=== PATIENT | female | born 2000 | race Caucasian/White ===

== ENCOUNTER 2023-06-04 09:19 | Emergency (ER) | payer MEDICAID ==
[~2023-06-04] VITALS: Ht 152.4 cm; Wt 47.6 kg
--- NOTE | 2023-06-04 09:57 | NUR ---
called to triage, not in lobby x1
[2023-06-04 10:15] VITALS: BP 124/69; PULSE 95; O2SAT 98
[2023-06-04 10:46] VITALS: TEMP 97.9
[2023-06-04 10:50] VITALS: RESP 18
[2023-06-04 10:51] LABS: URINE HCG NEGATIVE (NEG)
--- NOTE | 2023-06-04 14:08 | NUR ---
AGREE WITH LVNS ASSESSMENT, REVIEWED.
== END 2023-06-04 14:11 | disposition home or self-care (01) ==
LOC: ER 09:19
DX: Z32.02 Encounter for pregnancy test, result negative (principal); F12.90 Cannabis use, unspecified, uncomplicated; Z91.013 Allergy to seafood; Z88.2 Allergy status to sulfonamides
CPT/HCPCS: 81025; 99283

== ENCOUNTER 2023-06-17 11:20 | Emergency (ER) | payer MEDICAID ==
[~2023-06-17] VITALS: Ht 154.9 cm; Wt 48.3 kg
[2023-06-17 11:30] VITALS: TEMP 99.2
[2023-06-17 12:07] LABS: BASOPHILS % (AUTO) 0.3 % (0-1); EOSINOPHILS % (AUTO) 0.5 % (0-6); HEMATOCRIT 38.9 % (35.0-45.0); HEMOGLOBIN 12.9 g/dl (12.0-16.0); LYMPHOCYTES # (AUTO) 1.1 X10'3 (1.1-4.8); LYMPHOCYTES % (AUTO) 22.1 % (21-51); MEAN CORPUSCULAR HEMOGLOBIN 29.8 PG (27.0-31.0); MEAN CORPUSCULAR HGB CONC 33.1 g/dL (33.0-36.5); MEAN CORPUSCULAR VOLUME 90.1 FL (78-98); MEAN PLATELET VOLUME 8.9 FL (7.4-10.4); MONOCYTES # (AUTO) 0.4 X10'3 (0-0.9); MONOCYTES % (AUTO) 7.3 % (2-12); NEUTROPHILS # (AUTO) 3.5 X10'3 (1.8-7.7); NEUTROPHILS % (AUTO) 69.8 % (42-75); PLATELET COUNT 169 X10'3 (140-440); RED BLOOD COUNT 4.31 X10'6 (4.20-5.60); RED CELL DISTRIBUTION WIDTH 12.3 % (11.5-14.5)
[2023-06-17 12:14] LABS: ALANINE AMINOTRANSFERASE 18 U/L (12-78); ALBUMIN 3.6 G/DL (3.4-5.0); ALBUMIN/GLOBULIN RATIO 1.1 (1.1-1.5); ALKALINE PHOSPHATASE 65 IU/L (46-116); ANION GAP 8 (8-16); ASPARTATE AMINO TRANSFERASE 22 U/L (10-37); BILIRUBIN,TOTAL 0.5 MG/DL (0.1-1.0); BLOOD UREA NITROGEN 10 MG/DL (7-18); CALCIUM 8.4 MG/DL (8.5-10.1); CHLORIDE 103 MMOL/L (99-107); CREATININE 0.77 MG/DL (0.40-0.90); ETHANOL < 10 MG/DL (<10); GLUCOSE 90 MG/DL (70-104); POTASSIUM 3.3 MMOL/L (3.5-5.1); SODIUM 138 MMOL/L (135-145); TOTAL PROTEIN 6.9 G/DL (6.4-8.2); eCRCL 86 ML/MIN; eGFR > 90 ML/MIN
[2023-06-17 12:46] LABS: BILIRUBIN,URINE NEGATIVE (Neg); CLARITY,URINE SLIGHTLY CLOUDY (Clear); COLOR,URINE YELLOW (Yellow); GLUCOSE, URINE NEGATIVE (Neg); KETONES,URINE TRACE mg/dl (Neg); LEUKOCYTE ESTERASE ,URINE NEGATIVE (Neg); NITRITES, URINE NEGATIVE (Neg); OCCULT BLOOD,URINE TRACE-INTACT (Neg); PH,URINE 5.5 (4.8-8.0); PROTEIN,URINE NEGATIVE (Neg); UROBILINOGEN,URINE 0.2 E.U/dL (0.2-1.0)
[2023-06-17 12:47] LABS: URINE AMPHETAMINE SCREEN NEGATIVE (Neg); URINE BARBITUATE SCREEN NEGATIVE (Neg); URINE BENZODIAZEPINES SCREEN NEGATIVE (Neg); URINE CANNABINOID SCREEN NEGATIVE (Neg); URINE COCAINE SCREEN NEGATIVE (Neg); URINE METHADONE SCREEN NEGATIVE (Neg); URINE OPIATE SCREEN NEGATIVE (Neg); URINE PHENCYCLIDINE SCREEN NEGATIVE (Neg)
[2023-06-17] MEDS ORDERED: PANT20TA18 PO (12:47)
[2023-06-17] MEDS ORDERED: ALBU6.7H14 INH (12:47)
[2023-06-17] MEDS ORDERED: pantoprazole 40mg Tablet.DR PO SCH (12:50)
[2023-06-17] MEDS ORDERED: pantoprazole 40mg Tablet.DR PO ONE ×3 (12:50→12:55)
[2023-06-17 12:56] LABS: MUCUS STRANDS MANY /LPF (Neg); SQUAMOUS EPITHELIAL CELL,UR MANY /LPF (FEW); UA COLLECTION TYPE CLN CATCH MIDSTREAM
[2023-06-17 12:58] LABS: BACTERIA,URINE 1+ /HPF (Neg); RBC,URINE 0-2 /HPF (0-2); WBC,URINE 0-4 /HPF (0-4)
[2023-06-17 13:19] VITALS: BP 109/72; PULSE 104; RESP 22; O2SAT 97
== END 2023-06-17 13:33 | disposition home or self-care (01) ==
LOC: ER 11:20
DX: R42 Dizziness and giddiness (principal); R53.83 Other fatigue; R10.9 Unspecified abdominal pain; F12.90 Cannabis use, unspecified, uncomplicated; Z91.013 Allergy to seafood; Z88.2 Allergy status to sulfonamides
CPT/HCPCS: 36415; 71045; 80053; 80305; 80320; 81001; 82948; 85025; 93005; 99285

== ENCOUNTER 2023-07-01 12:53 | Emergency (ER) | payer OTHER, MEDICAID ==
[~2023-07-01] VITALS: Ht 154.9 cm; Wt 47.3 kg
[~2023-07-01 12:53] MED LIST: ALBU6.7H14 INH; PANT20TA18 PO
[2023-07-01] MEDS ORDERED: CYCL-1 PO (14:46)
[2023-07-01 14:57] VITALS: BP 101/68; PULSE 77; RESP 16; TEMP 98.4; O2SAT 97
== END 2023-07-01 14:59 | disposition home or self-care (01) ==
LOC: ER 12:54
DX: M54.2 Cervicalgia (principal); M54.9 Dorsalgia, unspecified; V87.7XXA Person injured in collision between other specified motor vehicles (traffic), initial encounter; Y93.89 Activity, other specified; Y92.89 Other specified places as the place of occurrence of the external cause; Y99.8 Other external cause status
CPT/HCPCS: 72040; 72100; 99284

== ENCOUNTER 2024-01-19 14:03 | Emergency (ER) | payer OTHER, MEDICAID ==
[~2024-01-19] VITALS: Ht 157.5 cm; Wt 60.0 kg
[~2024-01-19 14:03] MED LIST changes: +CYCL-1 PO
[2024-01-19] MEDS: CefTRIAXone 500MG IM Kit w/LIDOcaine (for pt below or = to 150kg) IM ONE (14:45)
[2024-01-19] MEDS: LEVONORGESTREL 1.5MG tablet 1.5 MG TABLET PO ONE (17:09)
[2024-01-19] MEDS: TINIDAZOLE 500 MG TABLET PO ONE (17:10)
[2024-01-19] MEDS: azithromycin 250mg tablet PO ONE (17:10)
[2024-01-19] MEDS ORDERED: OLAN2.5T3 PO (17:48)
[2024-01-19] MEDS ORDERED: SERT-153 PO (17:48)
[2024-01-19] MEDS ORDERED: BUSP10TA11 PO (17:48)
[2024-01-19 18:00] VITALS: BP 104/70; PULSE 85; RESP 14; TEMP 98.3; O2SAT 98
== END 2024-01-19 18:03 | disposition home or self-care (01) ==
LOC: EEVIPCON 14:04 → ER 14:04
DX: T74.21XA Adult sexual abuse, confirmed, initial encounter (principal); F41.9 Anxiety disorder, unspecified; F32.A Depression, unspecified; F20.9 Schizophrenia, unspecified; F12.90 Cannabis use, unspecified, uncomplicated; Z72.89 Other problems related to lifestyle; Z79.899 Other long term (current) drug therapy; Z88.2 Allergy status to sulfonamides; Z88.8 Allergy status to other drugs, medicaments and biological substances; Z91.013 Allergy to seafood
CPT/HCPCS: 99284

== ENCOUNTER 2024-06-11 23:44 | Emergency (ER) | payer MEDICAID ==
[~2024-06-11] VITALS: Ht 154.9 cm; Wt 49.4 kg
[~2024-06-11 23:44] MED LIST changes: -ALBU6.7H14 INH; +BUSP10TA11 PO; -CYCL-1 PO; +OLAN5TAB5 PO; -PANT20TA18 PO; +SERT25TA PO
[2024-06-12 00:58] LABS: BILIRUBIN,URINE NEGATIVE (Neg); CLARITY,URINE SLIGHTLY CLOUDY (Clear); COLOR,URINE YELLOW (Yellow); GLUCOSE, URINE NEGATIVE (Neg); KETONES,URINE NEGATIVE (Neg); LEUKOCYTE ESTERASE ,URINE NEGATIVE (Neg); NITRITES, URINE NEGATIVE (Neg); OCCULT BLOOD,URINE NEGATIVE (Neg); PH,URINE 5.5 (4.8-8.0); PROTEIN,URINE NEGATIVE (Neg); URINE HCG POSITIVE (NEG); UROBILINOGEN,URINE 0.2 E.U/dL (0.2-1.0)
[2024-06-12 01:08] LABS: UA COLLECTION TYPE CLN CATCH MIDSTREAM
[2024-06-12] MEDS ORDERED: ONDA-243 PO (01:30)
[2024-06-12] MEDS ORDERED: PREN-125 PO (01:30)
[2024-06-12 01:37] LABS: BASOPHILS % (AUTO) 0.5 % (0-1); EOSINOPHILS # (AUTO) 0.1 X10'3 (0-0.9); EOSINOPHILS % (AUTO) 1.2 % (0-6); HEMATOCRIT 34.1 % (35.0-45.0); HEMOGLOBIN 11.7 g/dl (12.0-16.0); LYMPHOCYTES # (AUTO) 2.5 X10'3 (1.1-4.8); LYMPHOCYTES % (AUTO) 35.3 % (21-51); MEAN CORPUSCULAR HEMOGLOBIN 30.8 PG (27.0-31.0); MEAN CORPUSCULAR HGB CONC 34.4 g/dL (33.0-36.5); MEAN CORPUSCULAR VOLUME 89.5 FL (78-98); MEAN PLATELET VOLUME 8.2 FL (7.4-10.4); MONOCYTES # (AUTO) 0.7 X10'3 (0-0.9); MONOCYTES % (AUTO) 9.1 % (2-12); NEUTROPHILS # (AUTO) 3.8 X10'3 (1.8-7.7); NEUTROPHILS % (AUTO) 53.9 % (42-75); PLATELET COUNT 269 X10'3 (140-440); RED BLOOD COUNT 3.81 X10'6 (4.20-5.60); RED CELL DISTRIBUTION WIDTH 13.1 % (11.5-14.5); WHITE BLOOD COUNT 7.1 X10'3 (4.5-11.0)
[2024-06-12 01:48] LABS: AMORPHOUS URATES 1+; BACTERIA,URINE FEW /HPF (Neg); CAL OXALATE CRYSTALS FEW /HPF (NEGATIVE); MUCUS STRANDS FEW /LPF (Neg); RBC,URINE 0-2 /HPF (0-2); SQUAMOUS EPITHELIAL CELL,UR MANY /LPF (FEW); WBC,URINE 0-4 /HPF (0-4)
[2024-06-12 01:50] LABS: ALANINE AMINOTRANSFERASE 9 U/L (12-78); ALBUMIN 3.7 G/DL (3.4-5.0); ALBUMIN/GLOBULIN RATIO 1.1 (1.1-1.5); ALKALINE PHOSPHATASE 53 IU/L (46-116); ANION GAP 4 (8-16); ASPARTATE AMINO TRANSFERASE 9 U/L (10-37); BILIRUBIN,TOTAL 0.4 MG/DL (0.1-1.0); BLOOD UREA NITROGEN 10 MG/DL (7-18); BUN/CREATININE RATIO 12.8 (10.0-20.0); CALCIUM 8.8 MG/DL (8.5-10.1); CHLORIDE 102 MMOL/L (99-107); CREATININE 0.78 MG/DL (0.40-0.90); GLUCOSE 95 MG/DL (70-104); POTASSIUM 4.2 MMOL/L (3.5-5.1); SODIUM 137 MMOL/L (135-145); TOTAL CARBON DIOXIDE 31.2 MMOL/L (24-32); TOTAL PROTEIN 7.1 G/DL (6.4-8.2); eCRCL 85 ML/MIN; eGFR > 90 ML/MIN
[2024-06-12] MEDS: acetaminophen 325mg tablet PO ONE (02:33)
[2024-06-12 03:32] VITALS: BP 97/48; PULSE 115; RESP 18; TEMP 97.9; O2SAT 97
== END 2024-06-12 03:28 | disposition home or self-care (01) ==
LOC: ER 23:44
DX: O26.891 Other specified pregnancy related conditions, first trimester (principal); R10.13 Epigastric pain; F20.9 Schizophrenia, unspecified; F12.90 Cannabis use, unspecified, uncomplicated; Z3A.01 Less than 8 weeks gestation of pregnancy; Z91.013 Allergy to seafood; Z88.2 Allergy status to sulfonamides; Z88.1 Allergy status to other antibiotic agents; Z79.899 Other long term (current) drug therapy
CPT/HCPCS: 36415; 80053; 81001; 81025; 85025; 99283

== ENCOUNTER 2024-06-23 19:18 | Emergency (ER) | payer MEDICAID ==
[~2024-06-23] VITALS: Ht 154.9 cm; Wt 53.0 kg
[~2024-06-23 19:18] MED LIST changes: +ONDA-243 PO; +PREN-125 PO
[2024-06-23 19:32] VITALS: BP 105/70; PULSE 89; TEMP 98.6; O2SAT 98
[2024-06-23 19:54] VITALS: RESP 16
== END 2024-06-23 20:15 | disposition home or self-care (01) ==
LOC: ER 19:18
DX: J06.9 Acute upper respiratory infection, unspecified (principal); F20.9 Schizophrenia, unspecified; F41.9 Anxiety disorder, unspecified; F32.A Depression, unspecified; F12.90 Cannabis use, unspecified, uncomplicated; Z88.1 Allergy status to other antibiotic agents; Z88.2 Allergy status to sulfonamides; Z88.8 Allergy status to other drugs, medicaments and biological substances
CPT/HCPCS: 99282